=== PATIENT | female | born 2005 | race Caucasian/White ===

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

== ENCOUNTER 2024-04-18 11:14 | Emergency (ER) | payer MEDICAID, SELFPAY ==
[2024-04-18 11:14] VITALS: BP 154/109; PULSE 110; RESP 16; TEMP 36.1; O2SAT 99; BMI 19.7
[2024-04-18] MEDS: Lidocaine/Epi/Tetracaine 50 ML 1 APPLIC TOPICAL (12:15)
[2024-04-18] MEDS: Amox/Clavulanate 875 MG Tablet PO (12:22)
--- NOTE | 2024-04-18 13:09 | EDS_ITS ---
HPI History of Present Illness Chief Complaint: Bite Informant: patient Narrative Narrative: 18-year-old female presenting to the emergency room with dog bite to the face. Patient states that she was meeting her dog for the first time 2 dogs. Dog was reportedly a 8-year-old Maori [place]. She states that the dog bit her in the lower lip. She denies any other injuries. She denies dental trauma. Tetanus Immunization: <5 years PFSH PFSH Medical History no medical history Home Medications ?Medication ?Instructions ?Recorded ?Last Taken ?Type No Known/Unobtainable [No Known 01/20/13 Unknown History Home Medications] Allergy/AdvReac Type Severity Reaction Status Date / Time No Known Allergies Allergy Verified 04/18/24 11:16 Surgical History no surgical history Social History Smoking Status: Never smoker ROS ROS ED Constitutional Constitutional ED: Denies chills or weight loss Eyes Eyes: Denies change in vision or diplopia ENT ENT ED: Reports other Details: See history of present illness ; Denies ear pain, rhinorrhea or sore throat Cardiovascular Cardiovascular: Denies chest pain, orthopnea, palpitations or racing heartbeat Respiratory/Chest Respiratory/Chest: Denies cough, dyspnea or orthopnea Gastrointestinal Gastrointestinal: Denies abdominal pain, diarrhea, nausea or vomiting Genitourinary Genitourinary ED: Denies dysuria, hematuria or urinary frequency Musculoskeletal Musculoskeletal: Denies arthralgias or myalgias Integumentary Denies abscess or rash Neurologic Neurologic: Denies headache(s) or weakness Psychiatric Psychiatric: Denies anxiety, depression, suicidal ideation or suicidal thoughts Endocrine Endocrinology: Denies polydipsia, polyphagia or polyuria Allergic/Immunologic Allergic/Immunologic ED: Denies mouth swelling, tongue swelling or urticaria EXAM Physical Exam Const Vital Signs: 04/18/24 11:14 Temperature 97 F L Temperature Source Temporal Pulse Rate 110 H Respiratory Rate 16 Blood Pressure 154/109 H Blood Pressure Mean 124 Pulse Ox 99 Oxygen Delivery Method Room Air Positive well nourished and well developed General Appearance ED: well developed HEENT Reports normocephalic, head/scalp atraumatic and moist mucous membranes HEENT Narrative: Trauma to the lower lip. There is a approximately 4 cm highly irregular lower lip laceration that transverses the vermilion border multiple times with several triangular flaps. In the midline there is associated lip abrasion cephalad to the laceration. There is mild swelling concussed skin and a small lip hematoma noted laterally it is not through and through. Eyes PERRL and EOMs intact bilaterally Neck no lymphadenopathy, supple and no JVD Resp normal respiratory effort and clear to auscultation bilaterally Cardio regular rate, regular rhythm and no murmurs GI normal to inspection, nondistended, normoactive bowel sounds and non-tender Palpation: soft Back/Spine no CVA tenderness and normal ROM Extremity normal to inspection General Extremety ED: Negative for edema General Extremity: Negative for edema Neuro oriented x3 and CN's II-XII intact bilaterally Sensorium / Orientation: alert Motor Exam: strength 5/5 throughout Psych mental status grossly normal Mood & Affect: Negative for depressed or tearful Skin no rashes or lesions noted and no wounds MDM MDM MDM Narrative Medical decision making narrative: Differential diagnosis includes lip laceration dental injury infection foreign body neurovascular injury Local that was placed on the wound to limit the amount of local injection I would need to fully anesthetized the area. After approximately 15 minutes the wound was nearly completely anesthetized. Less than 1 cc of local lidocaine was used to anesthetize the wound that was not appropriately anesthetized. Wound was washed with Shur-Clens and explored. No obvious foreign bodies were seen. A total of 10 simple erupted sutures were placed to 5-0 repeat stitches placed on the lip tissue 1 on each lateral aspect. 6-0 Ethilon was then used to approximate the vermilion borders pain special attention to try to get the triangular flaps properly aligned. Some of the triangular flaps were noted to be significantly concussed. Patient was given Augmentin for wound prophylaxis. We discussed the fact that this transverses the vermilion border multiple times and every effort was made to well approximate the vermilion border. Scarring is most likely inevitable. I am going to have her follow-up with plastic surgery. Patient is comfortable with this planned. She understands wound care instructions. History & Record Review Discussion w/independent historian: Patient Discharge Plan Triage Chief Complaint: Bite ED Provider: Jc Thurston Dx/Rx/DC Orders Prescriptions: No Action No Known Home Medications Primary Care Provider: Jihan Zhang Referrals: Jihan Zhang MD [Primary Care Provider] - Print Language: Portuguese
[2024-04-18 13:14] VITALS: BP 120/78; PULSE 64; RESP 18; TEMP 37.2; O2SAT 98
[2024-04-18 13:16] VITALS: BP 122/76; PULSE 78; RESP 16; TEMP 37.1; O2SAT 99
== END 2024-04-18 13:24 | disposition home or self-care (01) ==
PROVIDERS: Emergency Provider Emergency Medicine; PCP Pediatrics; Visit Provider Emergency Medicine
DX: S01.551A Open bite of lip, initial encounter (principal); W54.0XXA Bitten by dog, initial encounter
CPT/HCPCS: 12013; 99284